=== PATIENT | female | born 1965 | race Two or more races ===

== ENCOUNTER 2022-01-23 11:26 | Emergency (ER) | payer BC ==
[~2022-01-23] VITALS: Ht 172.7 cm; Wt 70.3 kg
--- NOTE | 2022-01-23 11:33 | NUR ---
To ER bed 4, CADE ESCOBEDO "From [facility] doing a wellness check for insurance BP high", aaox3, breathing even and non labored, denies headache, connected to monitor, awaiting md kendall
[2022-01-23 13:03] LABS: CALCIUM, SERUM 9.4 mg/dL (8.5-10.1); CREATININE 0.8 mg/dL (0.6-1.3); POTASSIUM 4.3 mmol/L (3.5-5.1)
[2022-01-23] MEDS ORDERED: HYDR12.55 PO (13:23)
--- NOTE | 2022-01-23 14:10 | NUR ---
Patient discharged to home in stable condition. Written and verbal after care instructions given. Patient verbalizes understanding of instruction.
[2022-01-23 14:11] VITALS: BP 151/96
== END 2022-01-23 14:12 | disposition home or self-care (01) ==
LOC: ER 11:34
DX: R03.0 Elevated blood-pressure reading, without diagnosis of hypertension (principal); Z79.899 Other long term (current) drug therapy
CPT/HCPCS: 36415; 80048-TC